=== PATIENT | female | born 1995 | race Caucasian/White ===

== ENCOUNTER 2021-11-16 17:01 | Emergency (ER) | payer OTHER ==
[~2021-11-16] VITALS: Ht 175.3 cm; Wt 113.4 kg
[2021-11-16 17:08] VITALS: BP 113/61
--- NOTE | 2021-11-16 17:14 | NUR ---
BIB FAMILY C/O SOB, DIF BREATHING, 7/10 CP , COUGH X 3 DAYS.PMH: DM. DENIES N/V/D; SKIN IS PINK/WARM/DRY; AAOX4 WITH EVEN AND STEADY GAIT; LUNGS CLEAR BL; HR 107; PT DENIES ANY FEVER AT THIS TIME. O2SAT 89 AT THIS TIME.
--- NOTE | 2021-11-16 17:18 | NUR ---
O2 SAT 96%, P 84 AT THIS TIME.
[2021-11-16] MEDS ORDERED: predniSONE 20 MG TAB PO ONE (17:30)
[2021-11-16] MEDS ORDERED: ALBUTEROL SULFATE/IPRATROPIU 3 ML SOL IH ONE (17:30)
[2021-11-16] MEDS ORDERED: ALBUTEROL 0.083% 2.5 MG/3 ML NEBU INH ONE (17:30)
[2021-11-16] MEDS ORDERED: KETOROLAC 60 MG/2 ML VIAL IM ONE (17:35)
--- NOTE | 2021-11-16 17:53 | NUR ---
RT ADMINISTERING BREATHING TX
--- NOTE | 2021-11-16 18:22 | NUR ---
Note undone in EDM - 11/16/21 at 1824 by [email or web address] BIB FAMILY C/O SOB, DIF BREATHING, 7/10 CP , COUGH X 3 DAYS.PMH: DM. DENIES N/V/D; SKIN IS PINK/WARM/DRY; AAOX4 WITH EVEN AND STEADY GAIT; LUNGS CLEAR BL; HR 107; PT DENIES ANY FEVER AT THIS TIME. O2SAT 89 AT THIS TIME.
[2021-11-16] MEDS ORDERED: PRED20TA5 PO (18:31)
[2021-11-16] MEDS ORDERED: IBUP-2213 PO (18:31)
[2021-11-16] MEDS ORDERED: ALBU0.0912 IH (18:31)
[2021-11-16 18:48] VITALS: BP 113/61
--- NOTE | 2021-11-16 18:48 | NUR ---
Patient discharged with v/s stable. Written and verbal after care instructions given and explained. Patient alert, oriented and verbalized understanding of instructions. Ambulatory with steady gait. All questions addressed prior to discharge. ID band removed. Patient advised to follow up with PMD. Rx of IBUPROFEN, PROVENTIL HFA MDI, DELTASONE given. Patient educated on indication of medication including possible reaction and side effects. Opportunity to ask questions provided and answered.
== END 2021-11-16 18:48 | disposition home or self-care (01) ==
LOC: MED 17:01
DX: J45.909 Unspecified asthma, uncomplicated (principal); E11.9 Type 2 diabetes mellitus without complications
CPT/HCPCS: 71045; 94640; 96372; 99283; J1885; J7512; J7613